=== PATIENT | male | born 1975 | race Caucasian/White ===

== ENCOUNTER 2018-10-21 15:46 | Emergency (ER) | payer OTHER ==
--- NOTE | 2018-10-21 17:32 | RAD ---
THREE VIEWS OF THE LEFT FOOT: 10/21/18 COMPARISON: None. HISTORY: Injury, trauma, pain. FINDINGS/IMPRESSION: There is a questionable obliquely oriented nondisplaced fracture at the base of the fourth distal pha lanx laterally. No dislocation. POS: [facility]
== END 2018-10-21 16:34 | disposition home or self-care (01) ==
LOC: NAV ERS 15:46
DX: S90.32XA Contusion of left foot, initial encounter (principal); W20.8XXA Other cause of strike by thrown, projected or falling object, initial encounter; Z87.891 Personal history of nicotine dependence
CPT/HCPCS: 99001